=== PATIENT | female | born 1975 | race Caucasian/White ===

== ENCOUNTER 2022-05-30 11:00 | Emergency (ER) | payer OTHER, BC ==
[2022-05-30 11:08] VITALS: BP 125/82; PULSE 84; RESP 18; TEMP 98; BMI 27.4
[2022-05-30] MEDS ORDERED: DIPHTH,PERTUSS(ACELL),TET 0.5 ML DISP.SYRIN IM ONE ×2 (11:21)
== END 2022-05-30 12:23 | disposition home or self-care (01) ==
LOC: JERFT 11:00 → JER 11:00 → JERFT 12:23
PROC: 0HQFXZZ Repair Right Hand Skin, External Approach (ICD-10-PCS; principal; 2022-05-30)
PROC: 3E0234Z Introduction of Serum, Toxoid and Vaccine into Muscle, Percutaneous Approach (ICD-10-PCS; 2022-05-30)
DX: S61.210A Laceration without foreign body of right index finger without damage to nail, initial encounter (principal); W26.0XXA Contact with knife, initial encounter
CPT/HCPCS: 12001-25; 90471; 90715; 99282-25